=== PATIENT | female | born 1995 | race American Indian/Alaskan Native ===

== ENCOUNTER 2020-09-27 11:07 | Inpatient (IN) | payer MEDICAID ==
[2020-09-27] MEDS ORDERED: LACTATED RINGERS 2,000 ML ONE (13:24)
[2020-09-27] MEDS ORDERED: OXYTOCIN DRIP 30 UNITS/500 ML BAG IV SCH ×2 (14:00→19:00)
[2020-09-27] MEDS ORDERED: ceFAZolin/Water 2 GM/20 ML 2 GM/20 ML SYRINGE IV NR (14:00)
[2020-09-27] MEDS ORDERED: LACTATED RINGERS 1,000 ML IV SCH (14:00)
--- NOTE | 2020-09-27 14:38 | History and Physical Report ---
History of Present Illness Date of examination: 09/27/20 History of present illness: Patient is a 25-year-old G2, P1 at 38 weeks and 2 days with a due date of 10/09 who presented today status post spontaneous rupture membranes clear at home around 0400 in the morning today. Patient feels no regular contractions. Patient with a history of a prior . Her prior was in part due to failure to dilate. Patient only got to 2 cm after a 48-hour induction. Patient was also preeclamptic and that but does not appear to be so in this one. Patient with otherwise uncomplicated during this except for anemia. Patient's cervical exam on admission was fingertip/ long. Past History Past Medical History: other (anemia during , preeclampsia during the last .) Past Surgical History: section Social history: no significant social history - Obstetrical History Expected Date of Delivery: 10/09/20 Actual Gestation: 38 Week(s) 2 Day(s) : 2 Para: 1 Hx # Term Pregnancies: 1 Number of Living Children: 1 Medications and Allergies Allergies Allergy/AdvReac Type Severity Reaction Status Date / Time No Known Allergies Allergy Unverified 09/27/20 14:19 Active Meds: Active Medications Citric Acid/Sodium Citrate (Bicitra Oral Liqd 30ml) 30 ml PO ONCE ONE Stop: 09/27/20 14:57 Famotidine (Famotidine 20 Mg/2 Ml Inj) 20 mg IV ONCE ONE Stop: 09/27/20 14:57 Lactated Ringer's (Lactated Ringers) 1,000 mls @ 2,250 mls/hr IV PREOP ANDRZEJ Stop: 09/28/20 14:27 Oxytocin/Sodium Chloride (Pitocin/Ns 30 Unit/500ml) 30 units in 500 mls @ 0 mls/hr IV TITR ANDRZEJ; Protocol Cefazolin Sodium (Ancef/Sterile Water 2 Gm/20 Ml) 2 gm in 20 mls @ 80 mls/hr IV PREOP NR; Protocol Stop: 09/28/20 13:59 Metoclopramide HCl (Metoclopramide 10 Mg/2 Ml Inj) 10 mg IV ONCE ONE Stop: 09/27/20 14:57 Review of Systems All systems: negative (except HPI) - Vital Signs Vital signs: Vital Signs Pulse BP 75 134/86 09/27/20 12:31 09/27/20 12:31 Temp Pulse Resp BP Pulse Ox 75 134/86 09/27/20 12:31 09/27/20 12:31 - Obstetrical FHR: category 1 Results All other labs normal. Assessment and Plan - Patient Problems (1) Previous section Current Visit: Yes Status: Acute Plan to address problem: Options discussed with the patient at length. In light of the fact that her cervix is very unfavorable and that she is remote from delivery and already ruptured is of concern. Patient also has a history of poor cervical dilation with induction agents in the past. After thorough counseling, patient opts to proceed with her repeat low-transverse . Patient fully consented for the surgery. Risks, benefits, and alternatives were all discussed with the patient including risk of bleeding, infection, and potential for injury. Patient understands and accepts these risks. Patient agrees to proceed with surgery. All questions were answered. (2) SROM (spontaneous rupture of membranes) Current Visit: Yes Status: Acute
[2020-09-27] MEDS ORDERED: METOCLOPRAMIDE 10 MG/2 ML INJ IV ONE (14:56)
[2020-09-27] MEDS ORDERED: FAMOTIDINE 20 MG/2 ML INJ IV ONE (14:56)
[2020-09-27] MEDS ORDERED: BICITRA ORAL LIQD 30ML PO ONE (14:56)
[2020-09-27 16:04] LABS: Basophils # (Auto) 0.1 K/mm3 (0.0-0.1); Eosinophils % (Auto) 0.4 % (0.0-4.3); Hematocrit 28.4 % (30.3-42.9); Hemoglobin 9.9 gm/dl (10.1-14.3); Lymphocytes # (Auto) 2.2 K/mm3 (1.2-5.4); Lymphocytes % (Auto) 24.5 % (13.4-35.0); Mean Corpuscular HGB Conc 35 % (30-34); Mean Corpuscular Volume 95 fl (79-97); Monocytes # (Auto) 0.9 K/mm3 (0.0-0.8); Monocytes % (Auto) 9.8 % (0.0-7.3); Platelet Count 199 K/mm3 (140-440); Red Blood Count 3.01 M/mm3 (3.65-5.03); Red Cell Distribution Width 12.8 % (13.2-15.2)
[2020-09-27] MEDS ORDERED: HYDROmorphone 1 MG/1 ML INJ IV PRN (16:24)
[2020-09-27] MEDS ORDERED: diphenhydrAMINE 50 MG/ML VIAL IV PRN (16:24)
[2020-09-27] MEDS ORDERED: PROMETHAZINE 25 MG RECT SUPP PR PRN (16:24)
[2020-09-27] MEDS ORDERED: PROMETHAZINE 25 MG TAB PO PRN (16:24)
[2020-09-27] MEDS ORDERED: NALOXONE 0.4 MG/1 ML INJ IV PRN ×2 (16:24→18:24)
[2020-09-27] MEDS ORDERED: NalbUPHINE 10 MG/1 ML INJ IV PRN (16:24)
[2020-09-27] MEDS ORDERED: ONDANSETRON 4 MG/2 ML INJ IV PRN ×2 (16:24→18:27)
--- NOTE | 2020-09-27 16:25 | Anesthesia Day of Surgery ---
Anesthesia Day of Surgery - Day of Surgery Patient Examined: Yes Patient H&P Reviewed: Yes Patient is NPO: Yes Beta Blockers: No Cardiac Clearance: No Pulmonary Clearance: No Harjit's Test: N/A
--- NOTE | 2020-09-27 16:26 | Anesthesia Consultation ---
Anesthesia Consult and Med Hx Date of service: 09/27/20 - Airway Anesthetic Teeth Evaluation: Good ROM Head & Neck: Adequate Mental/Hyoid Distance: Adequate Mallampati Class: Class II Intubation Access Assessment: Probably Good - Pulmonary Exam CTA: Yes - Cardiac Exam Cardiac Exam: RRR - Pre-Operative Health Status ASA Pre-Surgery Classification: ASA2 Proposed Anesthetic Plan: Spinal Nerve Block: TAP - Pulmonary Hx Smoking: No Hx Asthma: No Hx Sleep Apnea: No - Cardiovascular System Hx Hypertension: No Hx Heart Attack/AMI: No Hx Angina: No - Central Nervous System Hx Seizures: No - Gastrointestinal Hx Gastroesophageal Reflux Disease: No - Endocrine Hx Renal Disease: No Hx Liver Disease: No Hx Insulin Dependent Diabetes: No Hx Non-Insulin Dependent Diabetes: No - Hematic Hx Anemia: Yes
[2020-09-27] MEDS ORDERED: KETOROLAC 30 MG/1 ML INJ ONE (16:30)
[2020-09-27] MEDS ORDERED: ONDANSETRON 4 MG/2 ML INJ ONE (16:30)
[2020-09-27] MEDS ORDERED: PHENYLEPHRINE/NS 1,000 MCG/10 ML SYRINGE (OR USE) IV ONE (16:30)
[2020-09-27] MEDS ORDERED: dexAMETHasone 20 MG/5 ML VIAL ONE (16:30)
[2020-09-27] MEDS ORDERED: BUPIVACAINE/PF (0.5%) 5 MG/1 ML 30 ML VIAL INFILTRATI ONE (16:30)
--- NOTE | 2020-09-27 16:58 | Progress Note ---
Spinal Anesthesia Block - Spinal Anesthesia Block Start Time: 16:32 Stop Time: 16:45 Performed by:: ISAAC GARCIA ([place]) Procedure: Spinal anesthesia block is being performed for [C/S]. H&P, labs have been reviewed. Patient's questions and concerns have been answered. Informed consent has been performed. Timeout has was performed. Patient in sitting position on side of bed. Sterile prep and drape was performed. 3 mL 1% lid ocaine skin wheal at L [3]-L [4]. Needle introducer advanced. 25-gauge spinal needle advanced, [+] CSF [-] blood. [Marcaine 9.5mg and Precedex 5mcg] Spinal dose was given. All needles removed. Patient tolerated procedure well.
[2020-09-27] MEDS ORDERED: LANOLIN/ZINC/DIMETHICONE (LANSINOH) 7 GM TP PRN (18:24)
[2020-09-27] MEDS ORDERED: WITCH HAZEL/ GLYCERIN PAD TP PRN (18:24)
--- NOTE | 2020-09-27 18:24 | Procedure Note ---
OB Delivery Note - Delivery Date of Delivery: 09/27/20 Surgeon: CANELO WHEELER Estimated blood loss: other (800 cc) - Section Preop diagnosis: repeat , other (PROM) Postop diagnosis: same section procedure: section, repeat low transverse Disposition: PACU Complications: none Narrative: Indication: 25-year-old at 38 weeks and 2 days with a history of prior C- section presents with spontaneous rupture membranes. Patient is only fingertip dilated and thick. As a result patient agreed to proceed with a repeat low transverse . Findings: Normal uterus, tubes and ovaries. Clear fluid. Loose nuchal cord x 1. Moderate bladder scarring to the uterus. Procedure: Patient taken to the operating room and prepped and draped in the usual fashion. Pfannenstiel skin incision was made and carried down to the underlying fascia. Fascia was incised and the incision was extended bilaterally. Rectus fascia dissected off the rectus muscle both superiorly and inferiorly. Peritoneum identified tented up and entered. Peritoneal incision extended superiorly and inferiorly with good visualization of the bladder. Bladder flap needed to be created due to the adhesions. Bladder blade was placed. Uterine incision was made and the incision was extended bilaterally. The baby was delivered in the typical vertex fashion. Baby bulb suctioned at the incision site and again after delivery. Cord was delayed clamped and cut and handed off to waiting team. The placenta was delivered spontaneously. The uterus was exteriorized and cleared of all clots and debris. Uterine incision closed with 0 Vicryl in a running locked fashion followed by a second imbricating layer of 0 Vicryl. Good hemostasis was noted after several of additional [id number] stitches. Her urine was clear. Uterus tubes and ovaries were returned to the abdominal cavity. Gutters were cleared of all clots and debris. Good hemostasis noted. Interceed placed over the uterine incision and over the lower uterine segment in the midline. Attention was turned to the rectus fascia which was reapproximated with 0 Vicryl in a running fashion. Subcutaneous tissue was irrigated and reapproximated with 2-0 Vicryl in a running fashion. Skin was closed with 4-0 Vicryl in a subcuticular fashion followed by Dermabond. The procedure was concluded at this point and the patient tolerated the procedure well. All instrument and lap counts were correct. - Infant A at 1 minute: 8 at 5 minutes: 9 Gender: Male
[2020-09-27] MEDS ORDERED: SENNOSIDES 8.6 MG TAB PO PRN (18:27)
[2020-09-27] MEDS ORDERED: MAGNESIUM HYDROXIDE (MOM) ORAL LIQD UDC PO PRN (18:27)
[2020-09-27] MEDS ORDERED: SIMETHICONE 80 MG CHEW TAB PO PRN (18:27)
--- NOTE | 2020-09-27 19:01 | Progress Note ---
Regional Anesthesia Block - Regional Anesthesia Block Start Time: 18:22 Stop Time: 18:30 Performed By:: ISAAC GARCIA ([place]) Procedure: Patient consented for TAP block for post surgical pain management. Patient identified, monitors placed, and time out performed. Mid axillary TAP identified bilaterally via ultrasound. Skin prepped bilaterally with [chlorhexidine] and [20g stimuplex] needle advanced to the TAP. 35ml [Marcaine 0.215% with 25mcg Precedex and Decadron 5mg] injected under ultrasound guidance on the [left] side. 35ml [Marcaine 0.215% with 25mcg Precedex and Decadron 5mg] injected under ultrasound guidance on the [right] side. Negative aspiration every 5mL, Patient tolerated the procedure well. No apparent complications seen.
[2020-09-28] MEDS: KETOROLAC 30 MG/1 ML INJ IV PRN ×2 (00:05→06:30)
[2020-09-28] MEDS: oxyCODONE /ACETAMINOPHEN 5-325MG TAB PO PRN ×3 (00:55→18:31)
[2020-09-28 06:36] LABS: Hematocrit 28.6 % (30.3-42.9); Hemoglobin 9.6 gm/dl (10.1-14.3)
--- NOTE | 2020-09-28 09:54 | Post Anesthesia Evaluation ---
- Post Anesthesia Evaluation Patient Participated: Yes Airway Patent: Yes Stable Respiratory Function: Yes Nausea/Vomiting: No Temp > 96.8F: Yes Pain Manageable: Yes Adequeate Hydration: Yes Anesthesia Complications: No Block Receding Appropriately: Yes Patient on Ventilator: No
[2020-09-28] MEDS: FERROUS SULFATE 325 MG TAB PO SCH (16:33)
--- NOTE | 2020-09-28 18:19 | Progress Note ---
Assessment and Plan A: /postop day 1 S/P repeat low transverse section. Anemia. P: Supplement with iron. Encouraged ambulation. Subjective - Subjective Date of service: 09/28/20 Principal diagnosis: /postop day 1 S/P repeat LTCS Patient reports: appetite normal, voiding normally, pain well controlled, flatus, ambulating normally, no dizzy ambulation, no nauseated : doing well Objective - Vital Signs Latest vital signs: Vital Signs Temp Pulse Resp BP BP Pulse Ox 09/28/20 16:53 98.0 F 66 18 134/72 99 09/28/20 13:03 16 09/28/20 12:12 98.4 F 76 18 132/84 98 09/28/20 12:03 16 09/28/20 08:05 98.6 F 85 18 127/91 98 09/27/20 23:55 97.9 F 63 16 108/54 97 09/27/20 20:59 98.0 F 67 18 128/72 99 09/27/20 19:07 56 L 16 109/52 99 09/27/20 18:52 70 15 109/39 99 09/27/20 18:42 66 16 106/56 99 09/27/20 18:21 69 13 105/54 99 09/27/20 18:18 67 15 107/44 98 Intake and Output 09/28/20 09/28/20 09/28/20 07:59 15:59 23:59 Intake Total 480 Output Total 1200 Balance -720 Intake: Oral 480 Output: Urine 1200 Indwelling Catheter 1200 Other: Total, Intake Amount 240 Total, Output Amount 800 - Exam Cardiovascular: Present: Regular rate Lungs: Present: Clear to auscultation Abdomen: Present: normal appearance, soft, normal bowel sounds. Absent: distention, tenderness, guarding, rigidity Uterus: Present: normal, firm, fundal height below umbilicus. Absent: bogginess, tenderness Extremities: Present: edema (bilaeral pedal edema). Absent: tenderness Incision: Present: normal, dry, dressed - Labs Labs: Abnormal lab results 09/28/20 Range/Units 05:48 Hgb 9.6 L (10.1-14.3) gm/dl Hct 28.6 L (30.3-42.9) %
[2020-09-28] MEDS ORDERED: IBUPROFEN 800 MG TAB PO PRN (18:24)
[2020-09-29] MEDS: oxyCODONE /ACETAMINOPHEN 5-325MG TAB PO PRN ×3 (02:20→18:00)
--- NOTE | 2020-09-29 05:54 | Progress Note ---
Assessment and Plan A: day 2 S/P repeat LTCS. Anemia. P: Supplement with oral iron. Encouraged patient to ambulate. Anticipate discharge home tomorrow if patient continues to do well. Subjective - Subjective Date of service: 09/29/20 Principal diagnosis: /postop day 2 S/P repeat LTCS Patient reports: appetite normal, voiding normally, pain well controlled, flatus, ambulating normally, no dizzy ambulation, no nauseated : doing well Objective - Vital Signs Latest vital signs: Vital Signs Temp Pulse Resp BP BP Pulse Ox 09/29/20 02:20 14 09/28/20 18:31 16 09/28/20 16:53 98.0 F 66 18 134/72 99 09/28/20 13:03 16 09/28/20 12:12 98.4 F 76 18 132/84 98 09/28/20 12:03 16 09/28/20 08:05 98.6 F 85 18 127/91 98 - Exam Cardiovascular: Present: Regular rate Lungs: Present: Clear to auscultation Abdomen: Present: normal appearance, soft, normal bowel sounds. Absent: distention, tenderness, guarding, rigidity Uterus: Present: normal, firm, fundal height below umbilicus. Absent: bogginess, tenderness Extremities: Present: normal. Absent: tenderness, edema Incision: Present: normal, dry, dressed - Labs Labs: Abnormal lab results 09/28/20 Range/Units 05:48 Hgb 9.6 L (10.1-14.3) gm/dl Hct 28.6 L (30.3-42.9) %
[2020-09-29] MEDS: FERROUS SULFATE 325 MG TAB PO SCH (10:37)
[2020-09-30] MEDS: FERROUS SULFATE 325 MG TAB PO SCH (10:35)
[2020-09-30] MEDS: oxyCODONE /ACETAMINOPHEN 5-325MG TAB PO PRN (12:51)
--- NOTE | 2020-09-30 14:13 | Progress Note ---
Assessment and Plan A: /postop day 3 S/P repeat low transverse section. Anemia. P: Discharge patient home today. Discussed with patient /postop discharge instructions and warning signs. Advised patient re: care of incision and activity restrictions. Advised patient to continue taking her vitamins and iron supplements at home. Advised patient to avoid intercourse, lifting, housework, driving, tub baths (patient may take showers). Advised patient to follow up at [facility] office in 1 week. Patient voiced under standing of all instructions. Subjective - Subjective Date of service: 09/30/20 Principal diagnosis: /postop day 3 S/P repeat LTCS Interval history: Patient desires discharge home today. Patient reports: appetite normal, voiding normally, pain well controlled, flatus, ambulating normally, no dizzy ambulation, no nauseated : doing well Objective - Vital Signs Latest vital signs: Vital Signs Temp Pulse Resp BP BP Pulse Ox 09/30/20 09:03 97.9 F 69 18 101/63 97 09/30/20 01:10 98.1 F 79 20 131/55 09/29/20 23:26 18 09/29/20 18:00 16 09/29/20 16:55 98 F 82 18 129/79 Intake and Output 09/29/20 09/30/20 09/30/20 23:59 07:59 15:59 Intake Total 360 480 320 Balance 360 480 320 Intake: Oral 320 Intake, Free Water 360 480 Other: Total, Intake Amount 320 # Voids Void 2 2 1 - Exam Cardiovascular: Present: Regular rate Lungs: Present: Clear to auscultation Abdomen: Present: normal appearance, soft, normal bowel sounds. Absent: distention, tenderness, guarding, rigidity Uterus: Present: normal, firm, fundal height below umbilicus. Absent: bogginess, tenderness Extremities: Present: normal. Absent: tenderness, edema Incision: Present: normal, dry, intact
--- NOTE | 2020-09-30 14:18 | Discharge Summary ---
Providers - Providers Date of Admission: 09/27/20 11:08 Date of discharge: 09/30/20 Attending physician: CANELO WHEELER Primary care physician: CANELO WHEELER Hospitalization Reason for admission: section Delivery: Procedure: repeat low transverse Incision: normal, dry, intact Other procedures: none complications: none Discharge diagnosis: IUP at term delivered baby: male Pertinent studies: Labs. Hospital course: Stable hospital course. Disposition: DC- TO HOME OR SELFCARE - Discharge Diagnoses (1) Term delivered Status: Acute (2) Anemia Status: Acute Plan - Discharge Medications Prescriptions: Ibuprofen [Motrin 800 MG tab] 800 mg PO Q8HR PRN #30 tablet PRN Reason: Pain , Severe (7-10) oxyCODONE /ACETAMINOPHEN [Percocet 5/325] 1 tab PO Q4HR PRN #30 tab PRN Reason: Pain , Severe (7-10) - Provider Discharge Summary Activity: routine, no sex for 6 weeks, no heavy lifting 4 weeks, no strenuous exercise Diet: routine Instructions: routine Additional instructions: Continue taking your vitamins and iron supplements at home. Call your doctor immediately for: * Fever > 100.5 * Heavy vaginal bleeding ( >1 pad per hour) * Severe persistent headache * Shortness of breath * Reddened, hot, painful area to leg or breast * Drainage or odor from incision. * Keep incision clean and dry at all times and follow doctor's instructions regarding bathing/showering - Follow up plan Follow up: CANELO WHEELER MD [Primary Care Provider] - 7 Days Forms: [facility] Discharge Summary
[2020-09-30 17:21] VITALS: BP 118/78
== END 2020-09-30 16:00 | disposition home or self-care (01) | DRG 766 ==
LOC: TRG 11:07 → LD 11:08 → APU 11:08 → LD 13:00 → TRG 16:45 → OB 22:07
PROVIDERS: ADMIT Obstetrics & Gynecology; ATTEND Obstetrics & Gynecology
PROC: 10D00Z1 Extraction of Products of Conception, Low, Open Approach (ICD-10-PCS; principal; 2020-09-27)
DX: O34.211 Maternal care for low transverse scar from previous cesarean delivery (principal); O69.81X0 Labor and delivery complicated by cord around neck, without compression, not applicable or unspecified; O99.02 Anemia complicating childbirth; Z37.0 Single live birth; Z3A.38 38 weeks gestation of pregnancy; D64.9 Anemia, unspecified
CPT/HCPCS: 36415; 85014; 85018; 85025; 86850; 86900; 86901; G0378; A6250; J1100; J1885; J2370; J2405; J2765; J3490